=== PATIENT | male | born 1980 | race Caucasian/White ===

== ENCOUNTER 2016-08-23 16:11 | Emergency (ER) | payer BC ==
[~2016-08-23 16:11] MED LIST: *DENIES; TUMSROLL PO
== END 2016-08-23 16:55 | disposition home or self-care (01) ==
LOC: ER 16:11
PROC: 2W3KX1Z Immobilization of Left Finger using Splint (ICD-10-PCS; principal; 2016-08-23)
DX: S46.912A Strain of unspecified muscle, fascia and tendon at shoulder and upper arm level, left arm, initial encounter (principal); S61.311A Laceration without foreign body of left index finger with damage to nail, initial encounter; Z88.0 Allergy status to penicillin; Z79.899 Other long term (current) drug therapy; W23.0XXA Caught, crushed, jammed, or pinched between moving objects, initial encounter
CPT/HCPCS: 73030-LT; 73130-LT; 90471; 90714; 99283; A9270-GY